=== PATIENT | female | born 1990 | race Hispanic/Latino ===

== ENCOUNTER → 2024-10-17 13:21 | Outpatient (REF) | payer OTHER, SELFPAY | LOC: PNTC 13:21 | PROVIDERS: ATTENDING PHYSICIAN Advanced Practice Midwife | DX: O09.812 Supervision of pregnancy resulting from assisted reproductive technology, second trimester (principal); O09.519 Supervision of elderly primigravida, unspecified trimester | CPT/HCPCS: 76811; 76817 ==

== ENCOUNTER 2024-12-13 09:58 | Observation (INO) | payer OTHER, SELFPAY ==
[2024-12-13 11:34] LABS: Hematocrit 32.2 % (37.0-47.0); Mean Corp Hgb Conc. 34.2 g/dL (33.0-37.0); Mean Corpuscular Hgb 27.5 pg (27.0-31.0); Mean Corpuscular Volume 80.5 fL (81.0-99.0); Mean Platelet Volume 10.6 fL (7.4-10.4); Platelet Count 305 10^3/uL (130-400); Red Cell Dist. Width 14.8 % (11.5-14.5); White Blood Cell Count 8.9 10^3/uL (4.8-10.8)
[2024-12-13 11:59] LABS: ALT (SGPT) 505 U/L (0-35); AST (SGOT) 202 U/L (14-36); Albumin 3.3 g/dl (3.5-5.0); Alkaline Phosphatase 164 U/L (38-126); Blood Urea Nitrogen 10 mg/dl (7-17); Calcium 9.8 mg/dl (8.4-10.2); Carbon Dioxide 26 mmol/L (22-30); Chloride 104 mmol/L (98-107); Glucose 83 mg/dl (70-99); Sodium 136 mmol/L (135-145); Total Bilirubin 0.5 mg/dl (0.2-1.3); eGFR > 60.00
[2024-12-13 12:18] VITALS: BP 105/67; BMI 36.3
[2024-12-13 12:19] LABS: Protein/creatinine Ratio 0.3; Urine Protein 18 mg/dl
[2024-12-13 21:16] LABS: Hepatitis B Surface Antigen Negative (Negative)
[2024-12-14 06:19] LABS: Hepatitis A Antibody, Total Positive (Negative); Hepatitis B Core Ab, Total Negative (Negative); Hepatitis B Surface Antibody Negative; Hepatitis C Antibody Negative (Negative)
[2024-12-14 08:27] LABS: Hepatitis A IgM Antibody Negative (Negative)
== END 2024-12-13 14:15 | disposition home or self-care (01) ==
LOC: PNTC-IN 09:58
PROVIDERS: ADMITTING PHYSICIAN Obstetrics & Gynecology
DX: O26.643 Intrahepatic cholestasis of pregnancy, third trimester (principal); Z3A.28 28 weeks gestation of pregnancy
CPT/HCPCS: 76815; 80053; 82239; 82570; 84156; 85027; 86704; 86706; 86708; 86709; 86803; 87340; G0378

== ENCOUNTER → 2024-12-17 13:40 | Outpatient (REF) | payer OTHER, SELFPAY | LOC: PNTC 13:40 | PROVIDERS: ATTENDING PHYSICIAN Obstetrics & Gynecology | DX: O26.619 Liver and biliary tract disorders in pregnancy, unspecified trimester (principal) | CPT/HCPCS: 59025 ==

== ENCOUNTER → 2024-12-18 11:15 | Outpatient (REF) | payer OTHER, SELFPAY ==
--- NOTE | 2024-12-17 12:38 | PN.DIAED06 ---
Meal Plan - Gestational
- Breakfast
Gestational Diabetes Meal Plan Name: 1800 calories
Breakfast - Total Carbohydrate (grams): 30
Breakfast - Starch Carbohydrate: 1 (1 serving carb = 15 grams)
Breakfast - Fruit Carbohydrate: 0 (no fruit or juice before noon)
Breakfast - Milk Carbohydrate: 1 (1 serving = 15 grams)
Breakfast - Nonstarchy Vegetables: Yes
Breakfast - Meat/Protein: 1 (1 serving protein is 1 ounce)
Breakfast - Fat: 2 (fat portions vary by food)
- Morning Snack
Morning Snack - Total Carbohydrate (grams): 30
Morning Snack - Starch Carbohydrate: 1
Morning Snack - Fruit Carbohydrate: 0 (no fruit or juice before noon)
Morning Snack - Milk Carbohydrate: 1
Morning Snack - Nonstarchy Vegetables: Yes
Morning Snack - Meat/Protein: 0.5
Morning Snack - Fat: 0
- Lunch
Lunch - Total Carbohydrate (grams): 45
Lunch - Starch Carbohydrate: 2
Lunch - Fruit Carbohydrate: 1
Lunch - Milk Carbohydrate: 0
Lunch - Nonstarchy Vegetables: Yes
Lunch - Meat/Protein: 2
Lunch - Fat: 1
- Afternoon Snack
Afternoon Snack - Total Carbohydrate (grams): 30
Afternoon Snack - Starch Carbohydrate: 1
Afternoon Snack - Fruit Carbohydrate: 1
Afternoon Snack - Milk Carbohydrate: 0
Afternoon Snack - Nonstarchy Vegetables: Yes
Afternoon Snack - Meat/Protein: 1
Afternoon Snack - Fat: 0
- Dinner
Dinner - Total Carbohydrate (grams): 45
Dinner - Starch Carbohydrate: 2
Dinner - Fruit Carbohydrate: 0
Dinner - Milk Carbohydrate: 1
Dinner - Nonstarchy Vegetables: Yes
Dinner - Meat/Protein: 2
Dinner - Fat: 2
- Evening Snack
Evening Snack - Total Carbohydrate (grams): 30
Evening Snack - Starch Carbohydrate: 1
Evening Snack - Fruit Carbohydrate: 0
Evening Snack - Milk Carbohydrate: 1
Evening Snack - Nonstarchy Vegetables: Yes
Evening Snack - Meat/Protein: 1
Evening Snack - Fat: 1
--- NOTE | 2024-12-18 12:57 | PN.DE ---
Diabetes Education
- -
12/18/2024 GESTATIONAL DIABETES CONSULT
Met with Yonathan today for medical nutrition therapy. She is G1,P0, currently at 29 weeks and 4 days gestation.
Explained glucose metabolism in body and what occurs during to cause increase blood sugar. Discussed importance of keeping BS well controlled to avoid complications to the baby during and after (macrosomia, hypoglycemia).
Her father has DM, and she has felt hypoglycemia in the past. She states that her appetite has decreased due to . Encouraged her to maintain caloric intake and consistent meals and snacks to prevent rebound hyperglycemia.
Discussed macronutrients, provided with 1800 lorenzo GDM meal plan. She is eating more take out because it is easier than cooking. Explained that take out foods often count toward carbs, proteins, fats combined; read nutrient panels and to maintain
proper portion sizes.
Discussed physical activity, however, she is currently not exercising but in the past has lifted weights and walked. I encouraged her to start exercising by taking a walk daily for at least 30 minutes as tolerated.
Provided Contour Next glucometer sample kit, and stated supplies for test strips and lancets will be ordered. Reviewed proper testing technique, testing sites and testing pattern. She is aware to test FBS and 2 hr pp each meal. Expected results
for FBS <95 mg/dl and 2 hr pp <120 mg/dl. Noted for blood sugar of 88 mg/dl 1 hr after breakfast this morning. Log sheet provided for her to record results, she will send a 4-day meal log with all her FBG and 2hr Post prandial glucose numbers to
this office for review. In addition, she will send all her glucose readings [facility] every Tuesday.
She was encouraged to reach out should she require insulin.
== END ==
LOC: DES 11:15
PROVIDERS: ATTENDING PHYSICIAN Obstetrics & Gynecology
DX: O24.419 Gestational diabetes mellitus in pregnancy, unspecified control (principal)
CPT/HCPCS: 99078

== ENCOUNTER → 2024-12-20 08:17 | Outpatient (REF) | payer OTHER, SELFPAY | LOC: PNTC 08:17 | PROVIDERS: ATTENDING PHYSICIAN Obstetrics & Gynecology | DX: O26.619 Liver and biliary tract disorders in pregnancy, unspecified trimester (principal) | CPT/HCPCS: 59025; 76818 ==

== ENCOUNTER → 2024-12-21 11:21 | Outpatient (REF) | payer OTHER, SELFPAY | LOC: RAD 11:21 | PROVIDERS: ATTENDING PHYSICIAN Obstetrics & Gynecology | DX: M79.662 Pain in left lower leg (principal) | CPT/HCPCS: 93971 ==

== ENCOUNTER → 2024-12-24 09:30 | Outpatient (REF) | payer OTHER, SELFPAY | LOC: PNTC 09:30 | PROVIDERS: ATTENDING PHYSICIAN Obstetrics & Gynecology | DX: O26.619 Liver and biliary tract disorders in pregnancy, unspecified trimester (principal) | CPT/HCPCS: 59025 ==

== ENCOUNTER → 2024-12-27 11:32 | Outpatient (REF) | payer OTHER, SELFPAY | LOC: PNTC 11:32 | PROVIDERS: ATTENDING PHYSICIAN Obstetrics & Gynecology | DX: O26.649 Intrahepatic cholestasis of pregnancy, unspecified trimester (principal); O24.419 Gestational diabetes mellitus in pregnancy, unspecified control | CPT/HCPCS: 59025; 76815 ==

== ENCOUNTER → 2024-12-31 12:05 | Outpatient (REF) | payer OTHER, SELFPAY | LOC: PNTC 12:05 | PROVIDERS: ATTENDING PHYSICIAN Obstetrics & Gynecology | DX: O24.410 Gestational diabetes mellitus in pregnancy, diet controlled (principal); O26.643 Intrahepatic cholestasis of pregnancy, third trimester | CPT/HCPCS: 59025 ==

== ENCOUNTER → 2025-01-03 13:28 | Outpatient (REF) | payer OTHER, SELFPAY | LOC: PNTC 13:28 | PROVIDERS: ATTENDING PHYSICIAN Obstetrics & Gynecology | DX: O26.643 Intrahepatic cholestasis of pregnancy, third trimester (principal); O09.513 Supervision of elderly primigravida, third trimester; O99.213 Obesity complicating pregnancy, third trimester; O24.410 Gestational diabetes mellitus in pregnancy, diet controlled; O34.13 Maternal care for benign tumor of corpus uteri, third trimester; O09.813 Supervision of pregnancy resulting from assisted reproductive technology, third trimester | CPT/HCPCS: 59025; 76815 ==

== ENCOUNTER → 2025-01-07 09:06 | Outpatient (REF) | payer OTHER, SELFPAY | LOC: PNTC 09:06 | PROVIDERS: ATTENDING PHYSICIAN Obstetrics & Gynecology | DX: O26.619 Liver and biliary tract disorders in pregnancy, unspecified trimester (principal) | CPT/HCPCS: 59025 ==

== ENCOUNTER → 2025-01-10 09:35 | Outpatient (REF) | payer OTHER, SELFPAY | LOC: PNTC 09:35 | PROVIDERS: ATTENDING PHYSICIAN Obstetrics & Gynecology | DX: O26.649 Intrahepatic cholestasis of pregnancy, unspecified trimester (principal); O24.419 Gestational diabetes mellitus in pregnancy, unspecified control; O26.643 Intrahepatic cholestasis of pregnancy, third trimester; O24.410 Gestational diabetes mellitus in pregnancy, diet controlled; O09.513 Supervision of elderly primigravida, third trimester; O99.213 Obesity complicating pregnancy, third trimester; O09.813 Supervision of pregnancy resulting from assisted reproductive technology, third trimester; O34.13 Maternal care for benign tumor of corpus uteri, third trimester | CPT/HCPCS: 59025; 76815 ==

== ENCOUNTER → 2025-01-15 09:13 | Outpatient (REF) | payer OTHER, SELFPAY | LOC: PNTC 09:13 | PROVIDERS: ATTENDING PHYSICIAN Student in an Organized Health Care Education/Training Program | DX: O26.649 Intrahepatic cholestasis of pregnancy, unspecified trimester (principal) | CPT/HCPCS: 59025 ==

== ENCOUNTER → 2025-01-17 08:39 | Outpatient (REF) | payer OTHER, SELFPAY | LOC: PNTC 08:39 | PROVIDERS: ATTENDING PHYSICIAN Student in an Organized Health Care Education/Training Program | DX: O26.643 Intrahepatic cholestasis of pregnancy, third trimester (principal); O24.410 Gestational diabetes mellitus in pregnancy, diet controlled; O09.513 Supervision of elderly primigravida, third trimester; O99.213 Obesity complicating pregnancy, third trimester; O09.813 Supervision of pregnancy resulting from assisted reproductive technology, third trimester; O34.11 Maternal care for benign tumor of corpus uteri, first trimester | CPT/HCPCS: 59025; 76815 ==

== ENCOUNTER → 2025-01-21 09:05 | Outpatient (REF) | payer OTHER, SELFPAY | LOC: PNTC 09:05 | PROVIDERS: ATTENDING PHYSICIAN Obstetrics & Gynecology | DX: O26.619 Liver and biliary tract disorders in pregnancy, unspecified trimester (principal) | CPT/HCPCS: 59025 ==

== ENCOUNTER → 2025-01-24 10:06 | Outpatient (REF) | payer OTHER, SELFPAY | LOC: PNTC 10:06 | PROVIDERS: ATTENDING PHYSICIAN Obstetrics & Gynecology | DX: O26.643 Intrahepatic cholestasis of pregnancy, third trimester (principal); O24.410 Gestational diabetes mellitus in pregnancy, diet controlled; O09.513 Supervision of elderly primigravida, third trimester; O99.213 Obesity complicating pregnancy, third trimester; O09.813 Supervision of pregnancy resulting from assisted reproductive technology, third trimester; O34.11 Maternal care for benign tumor of corpus uteri, first trimester | CPT/HCPCS: 59025; 76815 ==

== ENCOUNTER → 2025-01-28 09:10 | Outpatient (REF) | payer OTHER, SELFPAY | LOC: PNTC 09:10 | PROVIDERS: ATTENDING PHYSICIAN Student in an Organized Health Care Education/Training Program | DX: O26.619 Liver and biliary tract disorders in pregnancy, unspecified trimester (principal) | CPT/HCPCS: 59025 ==

== ENCOUNTER → 2025-01-31 10:01 | Outpatient (REF) | payer OTHER, SELFPAY | LOC: PNTC 10:01 | PROVIDERS: ATTENDING PHYSICIAN Obstetrics & Gynecology | DX: O26.643 Intrahepatic cholestasis of pregnancy, third trimester (principal); O24.410 Gestational diabetes mellitus in pregnancy, diet controlled; O09.513 Supervision of elderly primigravida, third trimester; O99.213 Obesity complicating pregnancy, third trimester; O09.813 Supervision of pregnancy resulting from assisted reproductive technology, third trimester; O34.13 Maternal care for benign tumor of corpus uteri, third trimester | CPT/HCPCS: 59025; 76816 ==

== ENCOUNTER → 2025-02-04 09:08 | Outpatient (REF) | payer OTHER, SELFPAY | LOC: PNTC 09:08 | PROVIDERS: ATTENDING PHYSICIAN Student in an Organized Health Care Education/Training Program | DX: O26.649 Intrahepatic cholestasis of pregnancy, unspecified trimester (principal) | CPT/HCPCS: 59025 ==

== ENCOUNTER → 2025-02-07 10:05 | Outpatient (REF) | payer OTHER, SELFPAY | LOC: PNTC 10:05 | PROVIDERS: ATTENDING PHYSICIAN Obstetrics & Gynecology | DX: O99.210 Obesity complicating pregnancy, unspecified trimester (principal); O24.419 Gestational diabetes mellitus in pregnancy, unspecified control; O09.819 Supervision of pregnancy resulting from assisted reproductive technology, unspecified trimester; O34.10 Maternal care for benign tumor of corpus uteri, unspecified trimester; O09.529 Supervision of elderly multigravida, unspecified trimester | CPT/HCPCS: 59025; 76815 ==

== ENCOUNTER 2025-02-11 19:38 | Inpatient (IN) | payer OTHER, SELFPAY ==
[2025-02-11 19:42] VITALS: BMI 36.3
[2025-02-11 20:00] LABS: Glucose - Point of Care 116 mg/dl (70-99)
[2025-02-11 20:32] VITALS: BP 104/66
[2025-02-11 20:46] LABS: % Basophils 0.6 % (0-2); % Eosinophils 1.4 % (0-6); % Lymphocytes 23.6 % (20.5-51.1); % Monocytes 6.4 % (1.7-9.3); Absolute Basophils 0.1 10^3/uL (0-0.2); Absolute Eosinophils 0.1 10^3/uL (0-0.7); Absolute Immature Granulocytes 0.2 10^3/uL (0-0.05); Absolute Lymphocytes 1.8 10^3/uL (1.2-3.4); Absolute Monocytes 0.5 10^3/uL (0.1-0.6); Absolute Neutrophils 5.2 10^3/uL (1.4-6.5); Hematocrit 31.5 % (37.0-47.0); Hemoglobin 10.8 g/dL (12.0-16.0); Mean Corp Hgb Conc. 34.3 g/dL (33.0-37.0); Mean Corpuscular Hgb 25.7 pg (27.0-31.0); Mean Platelet Volume 11.5 fL (7.4-10.4); Nucleated Red Blood Cells % 0.3 %; Platelet Count 282 10^3/uL (130-400); Red Cell Dist. Width 14.6 % (11.5-14.5); White Blood Cell Count 7.8 10^3/uL (4.8-10.8)
[2025-02-11] MEDS: CYTOTEC 25 MICROGRAM VAG (20:51)
[2025-02-11] MEDS: ACTIGALL PO (21:38)
[2025-02-11 23:01] LABS: Glucose - Point of Care 102 mg/dl (70-99)
[2025-02-12] MEDS: CYTOTEC 50 MICROGRAM PO ×2 (01:00→07:59)
[2025-02-12 01:25] LABS: ALT (SGPT) 24 U/L (0-35); AST (SGOT) 28 U/L (14-36); Albumin 3.5 g/dl (3.5-5.0); Alkaline Phosphatase 185 U/L (38-126); Blood Urea Nitrogen 9 mg/dl (7-17); Calcium 9.2 mg/dl (8.4-10.2); Carbon Dioxide 21 mmol/L (22-30); Chloride 107 mmol/L (98-107); Estimated Creatinine Clearance > 125 ml/min; Glucose 91 mg/dl (70-99); Potassium 4.6 mmol/L (3.5-5.1); Sodium 137 mmol/L (135-145); Total Bilirubin 0.4 mg/dl (0.2-1.3); Total Protein 6.2 g/dl (6.3-8.2); eGFR > 60.00
[2025-02-12 03:03] LABS: Glucose - Point of Care 93 mg/dl (70-99)
[2025-02-12] MEDS: SYNTHROID 50 MCG PO (05:59)
[2025-02-12 07:01] LABS: Glucose - Point of Care 106 mg/dl (70-99)
[2025-02-12] MEDS: CYTOTEC PO ×2 (07:07→22:01)
[2025-02-12] MEDS: ACTIGALL 300 MG PO ×2 (07:59→20:14)
[2025-02-12 10:54] LABS: Glucose - Point of Care 86 mg/dl (70-99)
[2025-02-12] MEDS: FENTANYL/BUPIVACAINE 100 EPIDURAL ×2 (12:04→19:49)
[2025-02-12] MEDS: SUBLIMAZE 100 MCG EPIDURAL (12:04)
[2025-02-12] MEDS: LR 1000 IV ×2 (12:30→20:34)
[2025-02-12] MEDS: PITOCIN 30 UNITS/NSS 500 ML IV (13:59)
[2025-02-12 14:57] LABS: Glucose - Point of Care 59 mg/dl (70-99)
[2025-02-12 15:31] LABS: Glucose - Point of Care 83 mg/dl (70-99)
[2025-02-12 19:30] LABS: Glucose - Point of Care 93 mg/dl (70-99)
[2025-02-12] MEDS: TYLENOL 1000 MG PO (20:13)
[2025-02-12] MEDS: ZOFRAN 4 MG IV (20:21)
[2025-02-12] MEDS: ACTIGALL PO (22:33)
[2025-02-12 23:29] LABS: Glucose - Point of Care 76 mg/dl (70-99)
[2025-02-13] MEDS: LR 1000 IV (00:32)
[2025-02-13 01:29] LABS: Glucose - Point of Care 84 mg/dl (70-99)
[2025-02-13] MEDS: FENTANYL/BUPIVACAINE 100 EPIDURAL ×2 (03:14→11:00)
[2025-02-13 03:37] LABS: Glucose - Point of Care 101 mg/dl (70-99)
[2025-02-13 05:29] LABS: Glucose - Point of Care 114 mg/dl (70-99)
[2025-02-13] MEDS: SYNTHROID 50 MCG PO (06:14)
[2025-02-13 07:41] LABS: Glucose - Point of Care 111 mg/dl (70-99)
[2025-02-13 09:36] LABS: Glucose - Point of Care 113 mg/dl (70-99)
[2025-02-13 12:06] LABS: Glucose - Point of Care 120 mg/dl (70-99)
[2025-02-13] MEDS: TYLENOL 1000 MG PO (12:29)
[2025-02-13] MEDS: BICITRA 30 ML PO (12:30)
[2025-02-13] MEDS: ZITHROMAX INFUSION 250 IV (12:31)
[2025-02-13] MEDS: ANCEF 10 IV (12:31)
[2025-02-13] MEDS: TORADOL 15 MG IV ×2 (17:21→21:35)
[2025-02-13 20:33] LABS: Hematocrit 25.2 % (37.0-47.0); Hemoglobin 8.9 g/dL (12.0-16.0); Mean Corp Hgb Conc. 35.3 g/dL (33.0-37.0); Mean Corpuscular Hgb 26.6 pg (27.0-31.0); Mean Corpuscular Volume 75.2 fL (81.0-99.0); Mean Platelet Volume 11.5 fL (7.4-10.4); Platelet Count 246 10^3/uL (130-400); Red Blood Cell Count 3.35 10^6/uL (4.20-5.40); Red Cell Dist. Width 14.8 % (11.5-14.5); White Blood Cell Count 17.9 10^3/uL (4.8-10.8)
--- NOTE | 2025-02-13 21:43 | HPS.HSE ---
Family Physician
-
Family Physician: INTERVIEWE UNKNOWN - PT NOT
Chief Complaint
-
induction of labor
History of Present Illness
HPI: Patient is a 34yo @ 37.4 who presents to Labor and Delivery for IOL. She denies contractions, VB or LOF.
complications
- GDMA1
- Cholestasis of
- BMI 35
- 7cm uterine fibroid
- Advanced maternal age
- IVF
labs: Blood type A+/Ab neg/ hbsag Neg/HIV Neg/RI/Gc-CT neg/Pap NIL-HPv neg/HCV Ab neg/AFP Neg/1hr 166/3hr nml/GBS Neg
PMHx:Prolactinoma, Fibroids, Obesity, Infertility
PSHx: [place] teeth, liposuction, polyp removal
Fhx: MGF & Father- DM
Shx: no tob/etoh/ill
All: NKDA
meds: PNV, Ursodiol 300mg TID, levothyroxine 50mcg QD
ROS; per HPI
FHT: 150 baseline/moderate variability/+accelerations/no decelerations
[place]: ctx q7+ minutes
Medical History
Past Medical History
Past Medical History: Reports Other
Past Surgical History: Reports Other
Social History
Tobacco: Non-smoker
Alcohol: None
Drug: None
Family History
Family History: Diabetes
Allergies / Home Medications
Allergies reflects when Allergies were last updated in [facility].
Home Medications with original date entered in [facility]
Allergy/Medication List:
All: NKDA
meds: PNV, Ursodiol 300mg TID, levothyroxine 50mcg QD
Review of Systems
-
A 12 point ROS was completed and negative except as noted: Yes
Physical Exam
Vital Signs
Vital Signs
Temp Pulse Resp BP Pulse Ox
97.9 F 120 18 104/66 99
02/11/25 20:32 02/11/25 20:32 02/11/25 20:32 02/11/25 20:32 02/11/25 20:32
Physical Exam
General: Well Developed and Well Nourished
HEENT: NormoCephalic
Respiratory: Non Labored Respirations
Cardiac: Regular Rhythm
Skin: Warm and Dry
Neuro: Awake and Alert
Psych: Calm
Laboratory Results
-
02/13/25 20:25
02/12/25 01:03
Laboratory Results
Total Bilirubin 0.4 mg/dl (0.2-1.3) 02/12/25 01:03
AST 28 U/L (14-36) 02/12/25 01:03
ALT 24 U/L (0-35) 02/12/25 01:03
Alkaline Phosphatase 185 U/L (38-126) H 02/12/25 01:03
Impression/Plan
-
IMPRESSION:
Patient is a 34yo @37.5 presents for IOL for cholestasis and GDMA1
PLAN:
-25mcg of vaginal Cytotec placed in posterior fornix at 2100. 50mcg q4h PO overnight
-pain control prn
-cefm/toco. Category 1 tracing
--- NOTE | 2025-02-13 21:53 | OR.RPT ---
Operative Report
Operative Report
Procedure date: 02/13/2025
Preop diagnosis: IUP @37.5, requesting , cholestasis, GDMA1, obesity, IVF , fibroid uterus
Postop diagnosis: same, hemorrhage
Procedure: Elective primary low transverse section
Surgeon: Lashell
Anesthesia: Spinal, Victor Manuel
QBL: 1801mL
Findings: Viable female infant born at 1324, Apgars 8/9, enlarged fibroid uterus- unable to exteriorize, uterine atony- given TXA and Methergine, lower uterine segment edematous, bleeding from left side of hysterotomy controlled with multiple figure
of eights, Surgicel placed over the hysterotomy, pressure dressing placed on incision at the end of the procedure
Complications: Hemorrhage from uterine atony treated with Methergine and TXA. Will check CBC at 2000
Espinoza catheter draining blood tinged dennis fluid before the procedure, draining clear urine at the end
Indication: Patient is a 34yo @37.5 who presented to Labor and Delivery on 02/11 for induction of labor for cholestasis and GDMA1. Her induction started with Cytotec. She received 3 doses of Cytotec. On the morning of 02/12, she spontaneously
ruptured for clear fluid at 0915. She was 1cm. She was started on Pitocin. Throughout the day and overnight, she continued to progress. On the morning of 02/13, she was found to be an anterior lip. Patient was very uncomfortable. She had received 2
epidurals. Her and her were requesting a . It was reviewed with the patient and her , that there was not a medical indication for a and it would be considered elective. The risks of a vs. vaginal delivery
were reviewed and patient decided she would like to proceed with primary section. Risks, benefits, and alternatives reviewed and all questions answered. Consents were signed.
Procedure: Patient was taken to the operating room where epidural anesthesia was found to be inadequate. Patient then received spinal anesthesia and was found to be adequate. 2g of Ancef and 500mg of Azithromycin were given for antibiotic
prophylaxis. The abdomen was prepped with ChloraPrep. The patient was draped in the normal sterile fashion. She was placed in the dorsal supine position with a left lateral tilt. A Pfannenstiel incision was made with a 10 blade and carried down to
the fascia with a scalpel. Hemostasis achieved with Bovie. The fascia was incised and dissected laterally with Wren scissors. The superior aspect of the fascia was grasped with Leigha clamps. The underlying rectus fascia was sharply dissected with
Wren scissors. In a similar fashion the inferior aspect of the fascia was elevated with Leigha clamps and the rectus muscle was dissected off with Wren scissors. The rectus muscles were down the midline to the level of the pubic symphysis
with manual dissection. The peritoneum was bluntly entered and extended using manual traction.
Nunez retractor and bladder blade were placed revealing good visualization of the bladder. The vesicouterine peritoneum was identified. A thin lower uterine segment was noted. The lower uterine segment was incised with a scalpel. Clear fluid
noted at entry. The uterine incision was extended bluntly with lateral and upward traction.
The fetus was in cephalic presentation. The head was elevated out of the pelvis with special attention paid to avoid using the uterine incision as a fulcrum. Gentle fundal pressure was applied once the head was brought to the incision and the head
delivered through the hysterotomy. The rest of the delivered without difficulty. Delayed cord clamping was performed per neonatology. The was handed off to the cad administrator. IV oxytocin was started to facilitate uterine contractions.
The placenta was manually extracted. The uterus was not able to be exteriorized due to enlarged fibroid uterus. Alexander retractor was placed in the abdomen. Allis clamps were placed at the apices of the hysterotomy. The inside of the uterus was wiped
with a lap sponge to assure complete removal of placental membranes. Fundal massage was performed and uterus was boggy. Methergine and TXA were given. The uterine incision was closed with 0 Vicryl in a running locked fashion. A horizontal
imbricating stitch was done on the hysterotomy with 0 Vicryl. There was oozing along the hysterotomy and multiple figure of eights were placed with 0 Vicryl and 2-0 Vicryl to achieve hemostasis. Bovie cautery was used on oozing areas of the serosa.
The left corner of the hysterotomy was bleeding and figure of eights with 0 Vicryl were placed. Surgicel was placed over the hysterotomy. The hysterotomy was inspected and noted to be hemostatic. The Alexander retractor was removed from the abdomen.
Blood clots and fluid were wiped out of the abdomen and pelvis with moist laparotomy sponges. The hysterotomy was inspected again and was hemostatic.
The rectus muscles were inspected and were hemostatic. The fascial layer was closed in a running continuous fashion using 0 Vicryl. The subcutaneous tissue was copiously irrigated and any small bleeding vessels were cauterized with Bovie cautery.
The subcutaneous tissue was reapproximated in a running continuous fashion with 2-0 Plain. The skin was closed with 4-0 Vicryl in a subcuticular fashion and covered with steri strips. There was oozing from the skin edges and pressure dressing was
placed. The patient tolerated the procedure well. All sponge and instrument counts were correct times two. The patient was taken to the recovery room in stable condition. Espinoza catheter had been draining dennis, blood tinged urine at the beginning of
the procedure and was draining clear urine at the end of the procedure.
[2025-02-14] MEDS: TORADOL 15 MG IV ×2 (04:03→10:22)
[2025-02-14 04:30] LABS: Hemoglobin 8.4 g/dL (12.0-16.0); Mean Corpuscular Hgb 26.3 pg (27.0-31.0); Mean Platelet Volume 11.6 fL (7.4-10.4); Platelet Count 251 10^3/uL (130-400); Red Cell Dist. Width 14.8 % (11.5-14.5); White Blood Cell Count 15.7 10^3/uL (4.8-10.8)
[2025-02-14] MEDS: SYNTHROID 50 MCG PO (05:51)
--- NOTE | 2025-02-14 07:38 | W.PN.ANS.POP ---
Anesthesia Post Operative
- Anesthesia Post Op Note
Vital Signs Stable-See Nursing Note: Yes
Airway Patent: Yes
Adequate Pain Control: Yes
Change in Mental Status: No
Current Postoperative Nausea & Vomiting: No
Anesthesia Complications: No
General Anesthetic Recall: No
Unplanned Admission: No
Post Op Hydration Adequate: Yes
[2025-02-14] MEDS: MYLICON 80 MG PO ×2 (08:11→17:15)
[2025-02-14] MEDS: FEOSOL 325 MG PO (08:11)
[2025-02-14] MEDS: PRENATAL PLUS 1 TABLET PO (08:11)
[2025-02-14] MEDS: SENOKOT-S 1 TABLET PO (08:11)
[2025-02-14] MEDS: TYLENOL 650 MG PO ×2 (15:30→21:51)
[2025-02-14] MEDS: MOTRIN 600 MG PO ×2 (15:30→21:51)
[2025-02-15] MEDS: TYLENOL 650 MG PO ×3 (04:56→19:47)
[2025-02-15] MEDS: MOTRIN 600 MG PO ×3 (04:56→19:47)
[2025-02-15] MEDS: SYNTHROID PO (05:05)
[2025-02-15] MEDS: SENOKOT-S 1 TABLET PO (08:18)
[2025-02-15] MEDS: PRENATAL PLUS 1 TABLET PO (08:18)
[2025-02-15] MEDS: FEOSOL 325 MG PO (08:18)
[2025-02-15] MEDS: PERCOCET 5/325 1 TABLET PO (09:41)
[2025-02-15 14:23] LABS: Syphilis/T. pallidum Ab Reflex Negative (Negative)
[2025-02-16] MEDS: MOTRIN 600 MG PO ×2 (02:08→09:28)
[2025-02-16] MEDS: TYLENOL 650 MG PO ×2 (02:08→09:28)
[2025-02-16] MEDS: SYNTHROID PO (05:31)
[2025-02-16] MEDS: PRENATAL PLUS 1 TABLET PO (08:13)
[2025-02-16] MEDS: FEOSOL 325 MG PO (08:13)
--- NOTE | 2025-02-16 08:53 | W.DS.TRANS ---
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
-
Discharge Instructions:
Discharge Diagnosis/Procedures primary cs
Instructions:
Stand-Alone Forms:
Changes to Home Medications: No
Discharge Medications:
DC Medications w/original date entered in [employer]
1 tab PO DAILY 12/13/24
levothyroxine 50 mcg tablet 50 mcg PO DAILY 12/13/24
ibuprofen 600 mg tablet 600 mg PO Q6HPRN PRN cramps #90 tabs 02/16/25
Home Medication Changes
Pending Results: No
Total time spent discharging patient (in min): 15
== END 2025-02-16 12:05 | disposition home or self-care (01) | DRG 787 ==
LOC: LDRP 19:38
PROVIDERS: Student in an Organized Health Care Education/Training Program; ADMITTING PHYSICIAN Obstetrics & Gynecology
PROC: 3E0P7VZ Introduction of Hormone into Female Reproductive, Via Natural or Artificial Opening (ICD-10-PCS; 2025-02-12)
PROC: 10D00Z1 Extraction of Products of Conception, Low, Open Approach (ICD-10-PCS; 2025-02-13)
DX: O24.420 Gestational diabetes mellitus in childbirth, diet controlled (principal); O26.643 Intrahepatic cholestasis of pregnancy, third trimester; O72.1 Other immediate postpartum hemorrhage; Z3A.37 37 weeks gestation of pregnancy; Z37.0 Single live birth; K76.89 Other specified diseases of liver; N97.9 Female infertility, unspecified; O99.284 Endocrine, nutritional and metabolic diseases complicating childbirth; E03.9 Hypothyroidism, unspecified; O99.214 Obesity complicating childbirth; O99.344 Other mental disorders complicating childbirth; F41.9 Anxiety disorder, unspecified; O90.81 Anemia of the puerperium; D64.9 Anemia, unspecified; O34.13 Maternal care for benign tumor of corpus uteri, third trimester; D25.9 Leiomyoma of uterus, unspecified; Z79.890 Hormone replacement therapy; Z91.013 Allergy to seafood; Z83.3 Family history of diabetes mellitus
CPT/HCPCS: 36415; 80053; 82962; 85025; 85027; 86780; 86850; 86900; 86901